=== PATIENT | female | born 1990 | race Caucasian/White ===

== ENCOUNTER 2024-07-10 13:09 | Emergency (ER) | payer OTHER ==
[~2024-07-10] VITALS: Ht 175.3 cm; Wt 74.6 kg
[~2024-07-10 13:09] MED LIST: KEFLEX500 MG PO; NORCO 5-325 TA1 EACH PO; ZOFRAN4 MG PO
[2024-07-10] MEDS ORDERED: ondansetron HCL 4 MG/2 ML VIAL IV ONE (15:15)
[2024-07-10] MEDS ORDERED: SODIUM CHLORIDE 0.9% 1,000 ML IV ONE (15:15)
[2024-07-10] MEDS ORDERED: PANTOPRAZOLE SODIUM 40 MG/10 ML VIAL IV ONE (15:15)
[2024-07-10 15:27] LABS: BASOPHILS 0.7 % (0-2); EOSINOPHILS 0.4 % (0-6); HEMATOCRIT 42.1 % (35.0-50.0); HEMOGLOBIN 14.9 g/dL (12.0-18.0); LYMPHOCYTES 18.8 % (24-44); MCH 34.1 (27-36); MCHC 35.5 g/dl (30-36); MCV 96.2 fl (81-99); MONOCYTES 5.3 % (0-12); NEUTROPHILS 74.8 % (39-80); PLATELET COUNT 311 K/uL (140-440); RBC 4.37 M/ul (4.3-5.7); RDW 12.9 (10.5-15.0)
[2024-07-10 15:42] LABS: ALBUMIN 4.2 g/dL (3.4-5.0); ALBUMIN/GLOBULIN RATIO 1.31 (1.1-2.4); ANION GAP 12.9 (7-21); BILIRUBIN, TOTAL 0.5 mg/dL (0.2-1.0); BUN/CREATININE RATIO 13.79 (6.0-28.6); CALCIUM 8.9 mg/dL (8.5-10.1); CREATININE, SERUM 0.58 mg/dL (0.55-1.02); POTASSIUM 3.9 mmol/L (3.5-5.1); PROTEIN, TOTAL 7.4 g/dL (6.4-8.2)
[2024-07-10] MEDS ORDERED: ONDANSETRON ODT8 MG PO (17:24)
[2024-07-10 17:32] VITALS: BP 101/53
== END 2024-07-10 17:32 | disposition home or self-care (01) ==
LOC: ED 13:09
PROVIDERS: Emergency Medicine
DX: K29.00 Acute gastritis without bleeding (principal); F17.200 Nicotine dependence, unspecified, uncomplicated
CPT/HCPCS: 36415; 80053; 83690; 84703; 85025; 96374; 96375; 99284-25; J2405; J2470; J7030